=== PATIENT | female | born 2000 | race Two or more races ===

== ENCOUNTER 2023-07-23 14:10 | Inpatient (IN) | payer MEDICARE ==
[~2023-07-23] VITALS: Ht 167.6 cm; Wt 76.7 kg
[2023-07-23] MEDS ORDERED: GADOTERATE MEGLUMINE 10 MMOL/20 ML VIAL IV ONE (14:18)
[2023-07-23] MEDS ORDERED: IOHEXOL-350 100 ML VIAL IV ONE (15:34)
[2023-07-23] MEDS ORDERED: CT SWABBABLE VALVE TRANS SET 1 EA INFUS.SET MC ONE (15:34)
[2023-07-23] MEDS ORDERED: IV NS 0.9% 250 ML IV ONE (15:34)
[2023-07-23] MEDS ORDERED: FLUT16SP16 BNOSTRILS (15:47)
[2023-07-23] MEDS ORDERED: IBUP-1955 PO (15:47)
[2023-07-23] MEDS ORDERED: LAMO200T2 PO (15:47)
[2023-07-23] MEDS ORDERED: ALBU8.5H8 IH (15:47)
[2023-07-23 16:01] LABS: BASOPHILS % (AUTO) 0.4 % (0.0-2.0); EOSINOPHILS # (AUTO) 0.1 K/uL (0.0-0.7); EOSINOPHILS % (AUTO) 1.2 % (0.0-6.0); HEMATOCRIT 41 % (33-45); HEMOGLOBIN 13.9 g/dL (11.5-14.8); LYMPHOCYTES # (AUTO) 1.3 K/uL (0.8-4.8); LYMPHOCYTES % (AUTO) 27.4 % (20.0-44.0); MEAN CORPUSCULAR HEMOGLOBIN 31 PG (26.0-33.0); MEAN CORPUSCULAR HGB CONC 34 g/dl (31.0-36.0); MEAN CORPUSCULAR VOLUME 93 fL (82-100); MONOCYTES # (AUTO) 0.5 K/uL (0.1-1.30); NEUTROPHILS # (AUTO) 2.9 K/uL (1.8-8.9); PLATELET COUNT (AUTO) 235 K/uL (150-450); RED BLOOD CELL COUNT(AUTO) 4.42 MIL/uL (4.0-5.2); RED CELL DISTRIBUTION WIDTH 12.5 % (11.5-15.0); WHITE BLOOD COUNT (AUTO) 4.9 K/uL (4.3-11.0)
[2023-07-23 16:25] LABS: INR 1.08 (0.91-1.10); PARTIAL THROMBOPLASTIN TIME 31.9 SEC (24.3-34.3); PROTHROMBIN TIME 11.3 SECS (9.2-11.1)
[2023-07-23 16:39] LABS: CALCIUM, SERUM 8.9 mg/dL (8.5-10.1); CARBON DIOXIDE 25 mmol/L (21-32); CHLORIDE 104 mmol/L (98-107); GLUCOSE 82 mg/dL (74-106); POTASSIUM 3.9 mmol/L (3.5-5.1); SODIUM SERUM 135 mmol/L (136-145); UREA NITROGEN, BLOOD 14 mg/dL (7-18)
[2023-07-23 16:45] LABS: ALANINE AMINOTRANSFERASE 20 U/L (12-78); ALKALINE PHOSPHATASE 86 U/L (46-116); ASPARTATE AMINOTRANSFERASE 18 U/L (15-37); BILIRUBIN,DIRECT 0.1 mg/dL (0.0-0.2); BILIRUBIN,TOTAL 0.3 mg/dL (0.2-1.0); TOTAL PROTEIN, SERUM 7.7 g/dL (6.4-8.2)
[2023-07-23 16:52] LABS: AMPHETAMINE, URINE NEGATIVE (NEGATIVE); BARBITURATE, URINE NEGATIVE (NEGATIVE); BENZODIAZEPINE, URINE NEGATIVE (NEGATIVE); CANNABINOID, URINE NEGATIVE (NEGATIVE); COCCAINE, URINE NEGATIVE (NEGATIVE); OPIATE, URINE NEGATIVE (NEGATIVE); PHENCYCLIDINE SCREEN,URINE NEGATIVE (NEGATIVE)
[2023-07-23 16:58] LABS: APPEARANCE,URINE SLIGHTLY CLOUDY (CLEAR); BILIRUBIN,URINE NEGATIVE (NEGATIVE); BLOOD, URINE NEGATIVE Ery/uL (NEGATIVE); COLOR,URINE YELLOW (YELLOW); KETONES,URINE NEGATIVE (NEGATIVE); LEUKOCYTE ESTERASE ,URINE NEGATIVE (NEGATIVE); NITRITE, URINE NEGATIVE (NEGATIVE); PH,URINE 8.5 (5.0-8.0); PREGNANCY TEST URINE QUAL NEGATIVE (NEGATIVE); PROTEIN,URINE NEGATIVE (NEGATIVE); UGLUCOSE NEGATIVE (NEGATIVE)
[2023-07-23 17:02] LABS: ADD URINE CULTURE NO; BACTERIA,URINE 1+ /HPF (None Seen); RBC,URINE 0-2 /HPF (0-2); SQUAMOUS EPITHELIAL CELL,UR 21-50 /HPF (None Seen); WBC,URINE 0-2 /HPF (0-3)
[2023-07-23] MEDS ORDERED: MAGNESIUM HYDROXIDE 30 ML UDC PO PRN (18:30)
[2023-07-23] MEDS ORDERED: ONDANSETRON HCL/PF 4 MG/2 ML VIAL IVP PRN (18:30)
[2023-07-23] MEDS ORDERED: MAG HYDROX/AL HYDROX/SIMETH 30 ML UDC PO PRN (18:30)
[2023-07-23] MEDS: ACETAMINOPHEN 325 MG TABLET PO PRN (21:06)
[2023-07-23] MEDS: IV NS 0.9% 1,000 ML IV PRN (21:08)
[2023-07-23 22:00] VITALS: BP 108/61; TEMP 98.2; O2SAT 98
[2023-07-24] VITALS: BP 110/72; TEMP 98.3; O2SAT 100
[2023-07-24 04:00] VITALS: BP 108/65; TEMP 97.7; O2SAT 98
[2023-07-24 07:36] LABS: BASOPHILS % (AUTO) 0.5 % (0.0-2.0); EOSINOPHILS # (AUTO) 0.1 K/uL (0.0-0.7); EOSINOPHILS % (AUTO) 1.9 % (0.0-6.0); HEMATOCRIT 40 % (33-45); HEMOGLOBIN 13.4 g/dL (11.5-14.8); LYMPHOCYTES # (AUTO) 1.2 K/uL (0.8-4.8); LYMPHOCYTES % (AUTO) 37.4 % (20.0-44.0); MEAN CORPUSCULAR HEMOGLOBIN 32 PG (26.0-33.0); MEAN CORPUSCULAR HGB CONC 34 g/dl (31.0-36.0); MEAN CORPUSCULAR VOLUME 94 fL (82-100); MONOCYTES # (AUTO) 0.5 K/uL (0.1-1.30); MONOCYTES % (AUTO) 14.9 % (2.0-12.0); NEUTROPHILS # (AUTO) 1.5 K/uL (1.8-8.9); NEUTROPHILS % (AUTO) 45.3 % (43.0-81.0); PLATELET COUNT (AUTO) 219 K/uL (150-450); RED BLOOD CELL COUNT(AUTO) 4.23 MIL/uL (4.0-5.2); RED CELL DISTRIBUTION WIDTH 12.8 % (11.5-15.0); WHITE BLOOD COUNT (AUTO) 3.3 K/uL (4.3-11.0)
[2023-07-24 07:58] LABS: CALCIUM, SERUM 8.6 mg/dL (8.5-10.1); CREATININE 0.9 mg/dL (0.6-1.3); MAGNESIUM 1.7 mg/dL (1.8-2.4); PHOSPHORUS 3.6 mg/dL (2.5-4.9); POTASSIUM 4.1 mmol/L (3.5-5.1)
[2023-07-24 08:00] VITALS: BP 124/81; TEMP 98.6; O2SAT 98
[2023-07-24] MEDS: IV NS 0.9% 1,000 ML IV PRN (09:37)
[2023-07-24] MEDS ORDERED: MAGNESIUM OXIDE 400 MG TABLET PO ONE (11:00)
[2023-07-24] MEDS: ACETAMINOPHEN 325 MG TABLET PO PRN (11:04)
[2023-07-24] MEDS ORDERED: METH4TAB17 PO (11:26)
[2023-07-24] MEDS ORDERED: predniSONE 20 MG TABLET PO ONE (11:30)
[2023-07-24 12:00] VITALS: BP 101/74; TEMP 98.3; O2SAT 98
[2023-07-24 16:00] VITALS: BP 116/82; TEMP 97.5; O2SAT 98
[2023-07-24 20:00] VITALS: BP 117/67; TEMP 98.4; O2SAT 100
[2023-07-25 04:00] VITALS: BP 97/62; TEMP 97.7; O2SAT 98
[2023-07-25 08:00] VITALS: BP 99/69; TEMP 97.5; O2SAT 100
[2023-07-25] MEDS ORDERED: MAGNESIUM OXIDE 400 MG TABLET PO ONE ×2 (08:30→09:00)
[2023-07-25] MEDS ORDERED: predniSONE 20 MG TABLET PO ONE (09:00)
[2023-07-25 12:00] VITALS: BP 125/76; TEMP 97.7; O2SAT 100
[2023-07-25] MEDS ORDERED: GADOTERATE MEGLUMINE 10 MMOL/20 ML VIAL IV ONE (12:09)
== END 2023-07-25 12:10 | disposition home health service (06) | DRG 89 ==
LOC: ER 14:17 → TELE1 20:03 → MEDSG1 07-24 15:12
PROVIDERS: ADMIT Nurse Practitioner Acute Care; ATTEND Nurse Practitioner Acute Care
DX: S06.0X0A Concussion without loss of consciousness, initial encounter (principal); D68.59 Other primary thrombophilia; R47.01 Aphasia; R53.1 Weakness; Y92.9 Unspecified place or not applicable; W22.09XA Striking against other stationary object, initial encounter; J45.909 Unspecified asthma, uncomplicated; E66.9 Obesity, unspecified; Z87.828 Personal history of other (healed) physical injury and trauma; Z68.27 Body mass index [BMI] 27.0-27.9, adult; M54.12 Radiculopathy, cervical region; S16.1XXA Strain of muscle, fascia and tendon at neck level, initial encounter; Z79.51 Long term (current) use of inhaled steroids; Z79.899 Other long term (current) drug therapy; V89.2XXS Person injured in unspecified motor-vehicle accident, traffic, sequela; Z86.16 Personal history of COVID-19; R26.9 Unspecified abnormalities of gait and mobility; R47.81 Slurred speech
CPT/HCPCS: 36415; 70450-TC; 70492; 70496-TC; 70498-TC; 70553-TC; 80048-TC; 80061-TC; 80076-TC; 81001; 83735-TC; 84100-TC; 84484-TC; 84703-TC; 85025-TC; 85730-TC; 86850-TC; 92507-TC; 92521; 97112-TC; 97116-TC; 97530-TC; 97535-TC; A4223; A9575; G0378; J7030; J7050; Q9967

== ENCOUNTER 2025-05-10 18:38 | Inpatient (IN) | payer MEDICARE, OTHER ==
[~2025-05-10] VITALS: Ht 165.1 cm; Wt 81.4 kg
[~2025-05-10 18:38] MED LIST: ALBU8.5H8 IH; FLUT16SP16 BNOSTRILS; IBUP-1955 PO; LAMO200T2 PO; METH4TAB17 PO
[2025-05-10] MEDS ORDERED: dexaMETHasone SOD PHOSPHATE 1 ML ONE (19:33)
[2025-05-10] MEDS ORDERED: KETOROLAC TROMETHAMINE INJ 30 MG/ML VIAL ONE (19:33)
[2025-05-10] MEDS ORDERED: PROCHLORPERAZINE EDISYLATE 10 MG/2 ML VIAL ONE (19:33)
[2025-05-10] MEDS ORDERED: Magnesium 1GM/D5W 100ML PREMIX 100 ML IV ONE (19:33)
[2025-05-10] MEDS: dexaMETHasone SOD PHOSPHATE 10 MG/ML VIAL IV ONE (19:55)
[2025-05-10] MEDS: IV NS 0.9% 1,000 ML BAG IV ONE (19:55)
[2025-05-10] MEDS: KETOROLAC TROMETHAMINE INJ 30 MG/ML VIAL IV ONE (19:56)
[2025-05-10 20:03] LABS: PLATELET COUNT (AUTO) 233 K/uL (150-450); RED BLOOD CELL COUNT(AUTO) 4.39 MIL/uL (4.0-5.2); RED CELL DISTRIBUTION WIDTH 12.9 % (11.5-15.0); WHITE BLOOD COUNT (AUTO) 4.5 K/uL (4.3-11.0)
[2025-05-10] MEDS: PROCHLORPERAZINE EDISYLATE 10 MG/2 ML VIAL IVP ONE (20:05)
[2025-05-10 20:07] LABS: CALCIUM, SERUM 8.9 mg/dL (8.5-10.1); CREATININE 0.9 mg/dL (0.6-1.3); SODIUM SERUM 139 mmol/L (136-145); UREA NITROGEN, BLOOD 15 mg/dL (7-18)
[2025-05-10 20:13] LABS: ALCOHOL, BLOOD < 3 mg/dL (0-10); ASPARTATE AMINOTRANSFERASE 16 U/L (15-37); TOTAL PROTEIN, SERUM 7.5 g/dL (6.4-8.2)
[2025-05-10] MEDS: Magnesium 1GM/D5W 100ML PREMIX 100 ML IV SCH (20:15)
[2025-05-10] MEDS ORDERED: MAG HYDROX/AL HYDROX/SIMETH 30 ML UDC PO PRN (21:30)
[2025-05-10] MEDS ORDERED: ALBUTEROL SULFATE 8 GM HFA.AER.AD IH PRN (21:30)
[2025-05-10] MEDS ORDERED: ACETAMINOPHEN 325 MG TABLET PO PRN (21:30)
[2025-05-10] MEDS ORDERED: MAGNESIUM HYDROXIDE 30 ML UDC PO PRN (21:30)
[2025-05-10] MEDS ORDERED: ONDANSETRON HCL/PF 4 MG/2 ML VIAL IVP PRN (21:30)
[2025-05-10] MEDS ORDERED: Z GUARD REMEDY 4 OZ OINT TP PRN (21:30)
[2025-05-10 21:45] VITALS: BP 117/54; TEMP 97.5; O2SAT 99
[2025-05-11] MEDS: IV NS 0.9% 1,000 ML IV PRN (04:51)
[2025-05-11 06:27] LABS: PLATELET COUNT (AUTO) 241 K/uL (150-450); RED BLOOD CELL COUNT(AUTO) 4.35 MIL/uL (4.0-5.2); RED CELL DISTRIBUTION WIDTH 12.7 % (11.5-15.0); WHITE BLOOD COUNT (AUTO) 5.3 K/uL (4.3-11.0)
[2025-05-11 06:51] LABS: CALCIUM, SERUM 9.4 mg/dL (8.5-10.1); CREATININE 0.8 mg/dL (0.6-1.3); PHOSPHORUS 2.9 mg/dL (2.5-4.9); SODIUM SERUM 140.0 mmol/L (136-145); UREA NITROGEN, BLOOD 12.0 mg/dL (7-18)
[2025-05-11 06:52] LABS: PREGNANCY TEST URINE QUAL NEGATIVE (NEGATIVE)
[2025-05-11 06:53] LABS: AMPHETAMINE, URINE NEGATIVE (NEGATIVE); BARBITURATE, URINE NEGATIVE (NEGATIVE); BENZODIAZEPINE, URINE NEGATIVE (NEGATIVE); CANNABINOID, URINE NEGATIVE (NEGATIVE); COCCAINE, URINE NEGATIVE (NEGATIVE); OPIATE, URINE NEGATIVE (NEGATIVE)
[2025-05-11] MEDS ORDERED: ALBUTEROL FS 2.5 MG/0.5 ML VIAL.NEB NEB PRN (07:00)
[2025-05-11 08:00] VITALS: BP 111/74; TEMP 98.4; O2SAT 100
[2025-05-11] MEDS: FLUTICASONE PROPIONATE 16 GM BOTTLE NS SCH (08:11)
[2025-05-11 09:00] VITALS: BP 120/74
[2025-05-11 14:52] VITALS: BP 116/82; TEMP 98.4; O2SAT 100
[2025-05-11 14:55] VITALS: BP 124/83; TEMP 98.4; O2SAT 100
[2025-05-11 16:00] VITALS: BP 127/70; TEMP 97.9; O2SAT 100
== END 2025-05-11 22:05 | disposition left against medical advice (07) | DRG 101 ==
LOC: ER 18:45 → MED 21:11
PROVIDERS: ADMIT Nurse Practitioner Acute Care; ATTEND Internal Medicine
DX: G40.909 Epilepsy, unspecified, not intractable, without status epilepticus (principal); F07.81 Postconcussional syndrome; Z87.820 Personal history of traumatic brain injury; Z79.51 Long term (current) use of inhaled steroids; Z79.899 Other long term (current) drug therapy; R47.1 Dysarthria and anarthria; R26.9 Unspecified abnormalities of gait and mobility; W22.09XS Striking against other stationary object, sequela
CPT/HCPCS: 36415; 70450-TC; 80048-TC; 80076-TC; 82140-TC; 82607-TC; 83735-TC; 84100-TC; 84443-TC; 84703-TC; 85025-TC; 97110-TC; 97112-TC; 97116-TC; A4223; G0378; G0480; J0780; J1100; J1885; J3475; J7030